=== PATIENT | male | born 1955 | race Caucasian/White ===

== ENCOUNTER 2024-11-18 08:09 | Outpatient (NON) | payer MEDICARE, SELFPAY ==
--- NOTE | 2024-11-18 | S_PTH ---
PATIENT: Arnav May LOC: [facility] U#:[id number] AGE/SX: 68/M ROOM: RE11/18/[address]: Toney Winn MD : 1955 BED: DIS: 11/18/2024 SPEC #: [id number] RECD: 11/19/24 09:27 STATUS: STUART REMargaret #: [id number] MIRELA: 11/18/24 00:[address]: Toney Winn DEPT: [facility] Surgical RECD BY: Kelly Starr ENTERED: 11/19/24 09:28 SP TYPE: Surgical OTHR DR: Rasta SolisMD Tissues: A - Colon Polypectomy Procedures: Hematoxylin and Eosin Stain Gross and Microscopic Level 4
== END 2024-11-18 08:10 | disposition home or self-care (01) ==
LOC: ANHLAB 11-19 08:11
PROVIDERS: PCP Internal Medicine; Visit Provider Internal Medicine Gastroenterology
DX: Z12.11 Encounter for screening for malignant neoplasm of colon (principal); D12.2 Benign neoplasm of ascending colon
CPT/HCPCS: 88305

== ENCOUNTER 2024-11-18 09:21 | Day surgery (SDC) | payer MEDICARE, SELFPAY ==
[2024-06-19 09:14] VITALS: BMI 22.0
[2024-10-31 11:13] VITALS: BMI 22.0
[2024-11-18 10:26] VITALS: BMI 21.9
--- NOTE | 2024-11-18 10:37 | P.PNAN_ITS ---
Anes - Eval Pre Procedure Procedure: Operation Date: 11/18/24 11:00 Proposed Procedures p Screening Colonoscopy - Toney Winn MD Date/Time: 11/18/24 10:37 Surgeon: Tatum Pre Op Diagnosis: Neoplasm Screening Patient Data Age: 68 Gender: M Height: 2.03 m Weight: 90.75 kg Allergies Allergy/AdvReac Type Severity Reaction Status Date / Time No Known Allergies Allergy Verified 11/18/24 10:17 Home Medications ?Medication ?Instructions ?Recorded ?Confirmed ?Type alfuzosin 10 mg tablet,extended 10 mg PO DAILY 10/31/24 10/31/24 History release 24 hr rosuvastatin 40 mg tablet 40 mg PO DAILY 10/31/24 10/31/24 History Patient hx anesthesia problems: none Family hx anesthesia problems: none Results Review: All pre-operative results and documents have been reviewed as part of the pre- operative evaluation. [facility] Social History Social History Smoking status: Former smoker Tobacco type: cigarettes Alcohol intake: current Substance use: never Substance use type: does not use Living arrangements: alone Spiritual care concerns: No Comments ASA 2 Exam Day of Procedure 11/18/24 10:37 Heart: regular rate and rhythm Lungs: clear to auscultation Airway: Mallampati scale class II Neurological: alert and oriented
[2024-11-18] MEDS: LACTATED RINGERS 1,000 ML 150 ML IV CONT (10:38)
[2024-11-18 10:39] VITALS: BP 122/85; PULSE 65; RESP 15; TEMP 36.8; O2SAT 98
--- OUTSIDE RECORDS SUMMARY | 2024-11-18 11:01 | XMS_ITS | Data Portability ---
Author Organization [facility] [employer], Main Office Address [address] [place] [address] Assessment No assessment recorded. Plan of Treatment Reminders Order Date Submit Date Provider Last Modified By Organization Details Last Modified Time Details Appointments None recorded. Lab lipid panel, serum 2023 024 [email or web address] [facility], [address] [place], [address], 5 12:41:47 CMP, serum or plasma 2023 024 [email or web address] [facility], [address] [place], [address], 5 12:41:47 urinalysis, dipstick 2023 024 [email or web address] 4 [facility] [place], [address] [facility] [address], [place], [address], 4 15:51:41 urinalysis complete, reflex culture 2023 024 KRIS [facility], [address] [place], [address], 4 09:38:24 PSA, serum or plasma 2022 023 [email or web address] [facility], [address] [place], [address], 3 09:53:32 CBC w/ auto diff 2022 023 [email or web address] [facility], [address] [place], [address], 3 09:53:32 lipid panel, serum [address] [facility], [address] [place], [address], 3 09:53:32 CMP, serum or plasma [address] [facility], [address] [place], [address], 3 09:53:32 Referral None recorded. Procedures colonoscopy screening (PROC) - Please call patient to schedule. [address] [facility], [address], [address], [place], [address], 5 10:09:21 colonoscopy screening (PROC) 2022 023 [id number] Zainab Arriaza MD, [address] [facility], [place], [address], 3 09:53:21 Surgeries None recorded. Imaging US, bladder 2023 024 [email or web address] 4 [facility] [place], [address] [facility] [address], [place], [address], 4 15:51:41 LDCT, chest, for lung cancer screening [address] ([facility]), [address] [place], [address], 3 09:53:13 Medication Orders sildenafil 100 mg tablet 2023 024 [id number] [place], [address] [place], [address], 4 15:37:56 alfuzosin ER 10 mg tablet,exte nded release 24 hr 2023 024 KRIS [facility] [address], [address], 4 16:34:21 doxycycline hyclate 100 mg capsule 2023 024 [email or web address] [address] [facility] [address], [address], 4 10:04:34 tamsulosin 0.4 mg capsule 2023 024 [email or web address] [facility] [address], [address], 4 15:26:51 varenicline tartrate 0.5 mg (11)-1 mg (42) tablets in a dose pack 2022 023 [email or web address] [facility] [address], [address], 4 15:26:54 Patient TargetsNo targets recorded. Patient Instructions Encounter Date Encounter Id Patient Instructions Last Modified By Organization Details Last Modified Time 02/09/2024 [id number] 1. I will see if his insurance will cover for sildenafil 100 mg tablets 2. Also I will give her a prescription for alfuzosin 10 mg dispensed 90 3. his PSA was normal his prostate exam was normal 4. He will come back in 1 year for a refill [email or web address] Not available 02/09/2024 16:33:48 04/25/2024 [id number] advance care planning: care instructions Not available 04/25/2024 17:47:37 advance directiv es: care instructions Not available 04/25/2024 17:47:37 [place] Advance Directives Not available 04/25/2024 17:47:37 risk assessment* Not available 04/25/2024 17:47:37 Personalized [facility] Plan and Screening Recommendations Advance Directives - Do you have one? No You have indicated that you are capable of preparing your advance care directive Advance Directives - Do we have your advance directive on file in your health record? No, please bring in a copy at your earliest convenience Primary Prevention/Interven tion (prevents or decreases the chance of common diseases from occurring) Smoking Risk: Non Smoker Recently quit-continue with efforts not to smoke. Alcohol Misuse Screening: Negative Weight: Appropriate Physical activity: Appropriate physical activity minimum of 10-20 minutes of activity that causes mild breathlessness/day Nutrition: Average Refer to attached handout Heart-Healthy Diet: After Your Visit Fall Risk (screened today): Low Vaccines Pneumococcal: Recommended today Influenza: Your next one in the fall of 2024 Chronic Disease Risks Stroke: Low Risk I have no recommendations Heart Attack: Low risk I have no recommendations Clogging of the Arteries: Intermediate Risk Active diagnosis, Continue current treatment plan Diabetes: Low Risk I have no recommendations Secondary Prevention/Interven tion (detects treatable diseases before they may cause symptoms, disability, or ) Prostate Cancer Screening: No PSA screening necessary Completed 07/2023 Colon Cancer Screening: Colonoscopy Ordered Date Screening Last Performed: Eye Disease Screening: Recommended today Dementia Risk: Low I have no recommendations Depression Screening: Negative I have no recommendations. [email or web address] Not available 04/25/2024 16:51:59 Reason for Referral None Reported. Results Created Date Observation Date Name Description Value Unit Range Abnormal Flag Note LastModifiedBy Organization Detail LastModifiedTime 07/14/19 24 07/14/2023 CBC/C OMPLE TE BLD COUNT W/DIF F white blood cells 6.2 x10'3 /uL 4.2-10 .8 Not Available [facility] (Lab) [address] [place], [address], 07/14/2023 18:45:01 07/14/19 24 07/14/2023 CBC/C OMPLE TE BLD COUNT W/DIF F red blood cells 4.47 x10'6 /uL 4.10-5 .80 Not Available [facility] (Lab) [address] [place], [address], 07/14/2023 18:45:01 02/09/20 24 07/14/2023 CBC/C OMPLE TE BLD COUNT W/DIF F hemoglobin 13.5 g/dL 13.2-1 7.0 Not Available [facility] (Lab) [address] [place], [address], 07/14/2023 18:45:01 07/14/19 24 07/14/2023 CBC/C OMPLE TE BLD COUNT W/DIF F hematocrit 41.7 % 39.3-5 0.0 Not Available [facility] (Lab) [address] [place], [address], 07/14/2023 18:45:01 07/14/19 24 07/14/2023 CBC/C OMPLE TE BLD COUNT W/DIF F mean red cell volume 93.3 fL 80.0-9 7.0 Not Available [facility] (Lab) [address] [place], [address], 07/14/2023 18:45:01 07/14/19 24 07/14/2023 CBC/C OMPLE TE BLD COUNT W/DIF F mean red cell hemoglobin 30.2 pg 27.0-3 3.0 Not Available [facility] (Lab) [address] [place], [address], 07/14/2023 18:45:01 07/14/19 24 07/14/2023 CBC/C OMPLE TE BLD COUNT W/DIF F mean RBC HGB concentratio n 32.4 g/dL 31.0-3 6.0 Not Available [facility] (Lab) [address] [place], [address], 07/14/2023 18:45:01 07/14/19 24 07/14/2023 CBC/C OMPLE TE BLD COUNT W/DIF F red cell distribution width 14.5 % 11.8-1 5.5 Not Available [facility] (Lab) [address] [place], [address], 07/14/2023 18:45:01 07/14/19 24 07/14/2023 CBC/C OMPLE TE BLD COUNT W/DIF F platelets 319 x10'3 /uL 150-40 0 Not Available [facility] (Lab) [address] [place], [address], 07/14/2023 18:45:01 07/14/19 24 07/14/2023 CBC/C OMPLE TE BLD COUNT W/DIF F mean platelet volume 10.0 fL 9.0-12 .4 Not Available [facility] (Lab) [address] [place], [address], 07/14/2023 18:45:01 07/14/19 24 07/14/2023 CBC/C OMPLE TE BLD COUNT W/DIF F neutrophils 48.8 % 39.0-7 2.0 Not Available [facility] (Lab) [address] [place], [address], 07/14/2023 18:45:01 07/14/19 24 07/14/2023 CBC/C OMPLE TE BLD COUNT W/DIF F lymphocytes 30.5 % 16.0-4 7.0 Not Available [facility] (Lab) [address] [place], [address], 07/14/2023 18:45:01 07/14/19 24 07/14/2023 CBC/C OMPLE TE BLD COUNT W/DIF F monocytes 6.9 % 5.0-12 .0 Not Available [facility] (Lab) [address] [place], [address], 07/14/2023 18:45:01 07/14/19 24 07/14/2023 CBC/C OMPLE TE BLD COUNT W/DIF F eosinophils 11.7 % 1.0-7. 0 high Not Available [facility] (Lab) [address] [place], [address], 07/14/2023 18:45:01 07/14/19 24 07/14/2023 CBC/C OMPLE TE BLD COUNT W/DIF F basophils 1.6 % 0.0-2. 0 Not Available [facility] (Lab) [address] [place], [address], 07/14/2023 18:45:01 07/14/19 24 07/14/2023 CBC/C OMPLE TE BLD COUNT W/DIF F immature granulocytes 0.5 % 0.00-0 .50 Not Available [facility] (Lab) [address] [place], [address], 07/14/2023 18:45:01 07/14/19 24 07/14/2023 CBC/C OMPLE TE BLD COUNT W/DIF F neutrophils, absolute count 3.03 x10'3 /uL 1.5-8. 0 Not Available [facility] (Lab) [address] [place], [address], 07/14/2023 18:45:01 07/14/19 24 07/14/2023 CBC/C OMPLE TE BLD COUNT W/DIF F lymphocytes, absolute count 1.90 x10'3 /uL 1.07-3 .43 Not Available [facility] (Lab) [address] [place], [address], 07/14/2023 18:45:01 07/14/19 24 07/14/2023 CBC/C OMPLE TE BLD COUNT W/DIF F monocytes, absolute count 0.43 x10'3 /uL 0.29-0 .99 Not Available [facility] (Lab) [address] [place], [address], 07/14/2023 18:45:01 07/14/19 24 07/14/2023 CBC/C OMPLE TE BLD COUNT W/DIF F eosinophils, absolute count 0.73 x10'3 /uL 0.02-0 .53 high Not Available [facility] (Lab) [address] [place], [address], 07/14/2023 18:45:01 07/14/19 24 07/14/2023 CBC/C OMPLE TE BLD COUNT W/DIF F basophils, absolute count 0.10 x10'3 /uL 0.01-0 .08 high Not Available [facility] (Lab) [address] [place], [address], 07/14/2023 18:45:01 07/14/19 24 07/14/2023 CBC/C OMPLE TE BLD COUNT W/DIF F immature granulocytes ,absolute 0.03 x10'3 /uL 0.00-0 .05 Not Available [facility] (Lab) [address] [place], [address], 07/14/2023 18:45:01 07/14/19 24 07/14/2023 CBC/C OMPLE TE BLD COUNT W/DIF F nucleated red blood cells 0.0 % -0 Not Available [facility] (Lab) [address] [place], [address], 07/14/2023 18:45:01 07/14/19 24 07/14/2023 CBC/C OMPLE TE BLD COUNT W/DIF F NRBC# 0.00 x10'3 /uL Not Available [facility] (Lab) [address] [place], [address], 07/14/2023 18:45:01 07/14/19 24 07/14/2023 LIPID PANEL cholesterol 271 mg/dL 140-19 9 high NIH KANU NSUS RECOM MENDA TION FOR ZACHARY STERO L: ADULT CHILD LOW RISK: <200 <170 BORDE RLINE : <200- 239 ----- HIGH RISK: >240 >200 Not Available [facility] (Lab) [address] [place], [address], 07/14/2023 18:58:03 07/14/19 24 07/14/2023 LIPID PANEL triglyceride s 112 mg/dL 0-150 NIH KANU NSUS REPOR T RECOM MENDA TION FOR TRIGL YCERI SUN: ADULT CHILD LOW RISK: <150 ----- BODER LINE: 150-1 99 ----- HIGH RISK: >200 ----- Not Available [facility] (Lab) [address] [place], [address], 07/14/2023 18:58:03 07/14/19 24 07/14/2023 LIPID PANEL HDL cholesterol 56 mg/dL 40- Not Available [facility] (Lab) [address] [place], [address], 07/14/2023 18:58:03 07/14/19 24 07/14/2023 LIPID PANEL LDL cholesterol, calculated 193 mg/dL 0-130 high NIH KANU NSUS REPOR T RECOM MENDA TIONS FOR LDL: ADULT CHILD LOW RISK <130 <110 (OPTI MAL LDL) <100 ----- BORDE RLINE : 130-1 59 ----- HIGH RISK: >160 >130 A TRIGL YCERI DE RESUL T >400 INVAL IDATE S THE CALCU LATIO N FOR LDL FRACT IONAT ION - THE LDL RESUL T WILL NOT BE REPOR IVONE. Not Available [facility] (Lab) [address] [place], [address], 07/14/2023 18:58:03 07/14/19 24 07/14/2023 COMPR [place] METAB OLIC PANEL sodium 138 mmol/ L 137-14 5 Not Available [facility] (Lab) [address] [place], [address], 07/14/2023 18:58:17 07/14/19 24 07/14/2023 COMPR [place] METAB OLIC PANEL potassium 4.3 mmol/ L 3.5-5. 1 Not Available [facility] (Lab) [address] [place], [address], 07/14/2023 18:58:17 07/14/19 24 07/14/2023 COMPR [place] METAB OLIC PANEL chloride 104 mmol/ L 98-107 Not Available [facility] (Lab) [address] [place], [address], 07/14/2023 18:58:17 07/14/19 24 07/14/2023 COMPR [place] METAB OLIC PANEL carbon dioxide 27 mmol/ L 22-30 Not Available [facility] (Lab) [address] [place], [address], 07/14/2023 18:58:17 07/14/19 24 07/14/2023 COMPR [place] METAB OLIC PANEL anion gap 11.3 mmol/ L 14-22 low Not Available [facility] (Lab) [address] [place], [address], 07/14/2023 18:58:17 07/14/19 24 07/14/2023 COMPR [place] METAB OLIC PANEL glucose 97 mg/dL 70-99 Not Available [facility] (Lab) [address] [place], [address], 07/14/2023 18:58:17 07/14/19 24 07/14/2023 COMPR [place] METAB OLIC PANEL BUN 10 mg/dL 8-19 Not Available [facility] (Lab) [address] [place], [address], 07/14/2023 18:58:17 07/14/19 24 07/14/2023 COMPR [place] METAB OLIC PANEL creatinine 0.65 mg/dL 0.66-1 .25 low Not Available [facility] (Lab) [address] [place], [address], 07/14/2023 18:58:17 07/14/19 24 07/14/2023 COMPR [place] METAB OLIC PANEL GFR >60 Refer ence Range : [place] ge GFR Healt hy Adult : >60 mL/mi n/1.7 3 m2 Chron ic Kidne y Disea se: 15-60 mL/mi n/1.7 3 m2 Kidne y Failu re: <15/m L/min /1.73 m2 www.n iddk. nih.g ov The MDRD study equat ion has not been valid ated in child edwin <18 years of age; pregn ant women ; the elder ly >85 years of age; or in some racia l or ethni c subgr oups, such as Hispa nics. Outsi de the valid ated marika eters , estim ated GFR is less accur ate, requi ring clini bill judgm ent on a case- by-ca se basis . Clini bill inter preta tion for other races and ages must be made by the clini david. The MDRD study equat ion has not been valid ated for the evalu ation of serum creat inine relat ed to nutri mecca l statu s or medic ation usage . For perso ns <18 years of age, a pedia tric GFR calcu lator is avail able on the [facility] websi te: https ://janay w.kid christian.o rg/pr ofess ional s/kdo qi/gf r_cal culat or Not Available [facility] (Lab) [address] [place], [address], 07/14/2023 18:58:17 07/14/19 24 07/14/2023 COMPR [place] METAB OLIC PANEL alkaline phosphatase 133 U/L 38-126 high Not Available [facility] (Lab) [address] [place], [address], 07/14/2023 18:58:17 07/14/19 24 07/14/2023 COMPR [place] METAB OLIC PANEL alanine aminotransfe rase 120 U/L 0-50 high Not Available [facility] (Lab) [address] [place], [address], 07/14/2023 18:58:17 07/14/19 24 07/14/2023 COMPR [place] METAB OLIC PANEL aspartate aminotransfe rase 72 U/L 15-46 high Not Available [facility] (Lab) [address] [place], [address], 07/14/2023 18:58:17 07/14/19 24 07/14/2023 COMPR [place] METAB OLIC PANEL bilirubin, total 0.40 mg/dL 0.20-1 .30 Not Available [facility] (Lab) [address] [place], [address], 07/14/2023 18:58:17 07/14/19 24 07/14/2023 COMPR [place] METAB OLIC PANEL calcium 9.5 mg/dL 8.4-10 .2 Not Available [facility] (Lab) [address] [place], [address], 07/14/2023 18:58:17 07/14/19 24 07/14/2023 COMPR [place] METAB OLIC PANEL total protein 6.8 g/dL 6.3-8. 2 Not Available [facility] (Lab) [address] [place], [address], 07/14/2023 18:58:17 07/14/19 24 07/14/2023 COMPR [place] METAB OLIC PANEL albumin 3.7 g/dL 3.0-4. 4 Not Available [facility] (Lab) [address] [place], [address], 07/14/2023 18:58:17 07/14/19 24 07/14/2023 COMPR [place] METAB OLIC PANEL globulin 3.1 g/dL 2.6-4. 2 Not Available [facility] (Lab) [address] [place], [address], 07/14/2023 18:58:17 07/14/19 24 07/14/2023 COMPR [place] METAB OLIC PANEL A/G ratio 1.2 ratio 1.0-2. 0 Not Available [facility] (Lab) [address] [place], [address], 07/14/2023 18:58:17 07/31/19 24 07/31/2023 CBC/C OMPLE TE BLD COUNT W/DIF F white blood cells 7.8 x10'3 /uL 4.2-10 .8 Not Available [facility] (Lab) [address] [place], [address], 07/31/2023 15:11:09 07/31/19 24 07/31/2023 CBC/C OMPLE TE BLD COUNT W/DIF F red blood cells 4.59 x10'6 /uL 4.10-5 .80 Not Available [facility] (Lab) [address] [place], [address], 07/31/2023 15:11:09 07/31/19 24 07/31/2023 CBC/C OMPLE TE BLD COUNT W/DIF F hemoglobin 13.9 g/dL 13.2-1 7.0 Not Available [facility] (Lab) [address] [place], [address], 07/31/2023 15:11:09 07/31/19 24 07/31/2023 CBC/C OMPLE TE BLD COUNT W/DIF F hematocrit 41.6 % 39.3-5 0.0 Not Available [facility] (Lab) [address] [place], [address], 07/31/2023 15:11:09 07/31/19 24 07/31/2023 CBC/C OMPLE TE BLD COUNT W/DIF F mean red cell volume 90.6 fL 80.0-9 7.0 Not Available [facility] (Lab) [address] [place], [address], 07/31/2023 15:11:09 07/31/19 24 07/31/2023 CBC/C OMPLE TE BLD COUNT W/DIF F mean red cell hemoglobin 30.3 pg 27.0-3 3.0 Not Available [facility] (Lab) [address] [place], [address], 07/31/2023 15:11:09 07/31/19 24 07/31/2023 CBC/C OMPLE TE BLD COUNT W/DIF F mean RBC HGB concentratio n 33.4 g/dL 31.0-3 6.0 Not Available [facility] (Lab) [address] [place], [address], 07/31/2023 15:11:09 07/31/19 24 07/31/2023 CBC/C OMPLE TE BLD COUNT W/DIF F red cell distribution width 14.2 % 11.8-1 5.5 Not Available [facility] (Lab) [address] [place], [address], 07/31/2023 15:11:09 07/31/19 24 07/31/2023 CBC/C OMPLE TE BLD COUNT W/DIF F platelets 283 x10'3 /uL 150-40 0 Not Available [facility] (Lab) [address] [place], [address], 07/31/2023 15:11:09 07/31/19 24 07/31/2023 CBC/C OMPLE TE BLD COUNT W/DIF F mean platelet volume 9.9 fL 9.0-12 .4 Not Available [facility] (Lab) [address] [place], [address], 07/31/2023 15:11:09 07/31/19 24 07/31/2023 CBC/C OMPLE TE BLD COUNT W/DIF F neutrophils 62.2 % 39.0-7 2.0 Not Available [facility] (Lab) [address] [place], [address], 07/31/2023 15:11:09 07/31/19 24 07/31/2023 CBC/C OMPLE TE BLD COUNT W/DIF F lymphocytes 25.5 % 16.0-4 7.0 Not Available [facility] (Lab) [address] [place], [address], 07/31/2023 15:11:09 07/31/19 24 07/31/2023 CBC/C OMPLE TE BLD COUNT W/DIF F monocytes 5.7 % 5.0-12 .0 Not Available [facility] (Lab) [address] [place], [address], 07/31/2023 15:11:09 07/31/19 24 07/31/2023 CBC/C OMPLE TE BLD COUNT W/DIF F eosinophils 5.1 % 1.0-7. 0 Not Available [facility] (Lab) [address] [place], [address], 07/31/2023 15:11:09 07/31/19 24 07/31/2023 CBC/C OMPLE TE BLD COUNT W/DIF F basophils 1.1 % 0.0-2. 0 Not Available [facility] (Lab) [address] [place], [address], 07/31/2023 15:11:09 07/31/19 24 07/31/2023 CBC/C OMPLE TE BLD COUNT W/DIF F immature granulocytes 0.4 % 0.00-0 .50 Not Available [facility] (Lab) [address] [place], [address], 07/31/2023 15:11:09 07/31/19 24 07/31/2023 CBC/C OMPLE TE BLD COUNT W/DIF F neutrophils, absolute count 4.86 x10'3 /uL 1.5-8. 0 Not Available [facility] (Lab) [address] [place], [address], 07/31/2023 15:11:09 07/31/19 24 07/31/2023 CBC/C OMPLE TE BLD COUNT W/DIF F lymphocytes, absolute count 2.00 x10'3 /uL 1.07-3 .43 Not Available [facility] (Lab) [address] [place], [address], 07/31/2023 15:11:09 07/31/19 24 07/31/2023 CBC/C OMPLE TE BLD COUNT W/DIF F monocytes, absolute count 0.45 x10'3 /uL 0.29-0 .99 Not Available [facility] (Lab) [address] [place], [address], 07/31/2023 15:11:09 07/31/19 24 07/31/2023 CBC/C OMPLE TE BLD COUNT W/DIF F eosinophils, absolute count 0.40 x10'3 /uL 0.02-0 .53 Not Available [facility] (Lab) [address] [place], [address], 07/31/2023 15:11:09 07/31/19 24 07/31/2023 CBC/C OMPLE TE BLD COUNT W/DIF F basophils, absolute count 0.09 x10'3 /uL 0.01-0 .08 high Not Available [facility] (Lab) [address] [place], [address], 07/31/2023 15:11:09 07/31/19 24 07/31/2023 CBC/C OMPLE TE BLD COUNT W/DIF F immature granulocytes ,absolute 0.03 x10'3 /uL 0.00-0 .05 Not Available [facility] (Lab) [address] [place], [address], 07/31/2023 15:11:09 07/31/19 24 07/31/2023 CBC/C OMPLE TE BLD COUNT W/DIF F nucleated red blood cells 0.0 % -0 Not Available [facility] (Lab) [address] [place], [address], 07/31/2023 15:11:09 07/31/19 24 07/31/2023 CBC/C OMPLE TE BLD COUNT W/DIF F NRBC# 0.00 x10'3 /uL Not Available [facility] (Lab) [address] [place], [address], 07/31/2023 15:11:09 07/31/19 24 07/31/2023 LIPID PANEL cholesterol 236 mg/dL 140-19 9 high NIH KANU NSUS RECOM MENDA TION FOR ZACHARY STERO L: ADULT CHILD LOW RISK: <200 <170 BORDE RLINE : <200- 239 ----- HIGH RISK: >240 >200 Not Available [facility] (Lab) [address] [place], [address], 07/31/2023 17:07:42 07/31/19 24 07/31/2023 LIPID PANEL triglyceride s 165 mg/dL 0-150 high NIH KANU NSUS REPOR T RECOM MENDA TION FOR TRIGL YCERI SUN: ADULT CHILD LOW RISK: <150 ----- BODER LINE: 150-1 99 ----- HIGH RISK: >200 ----- Not Available [facility] (Lab) [address] [place], [address], 07/31/2023 17:07:42 07/31/19 24 07/31/2023 LIPID PANEL HDL cholesterol 51 mg/dL 40- Not Available [facility] (Lab) [address] [place], [address], 07/31/2023 17:07:42 07/31/19 24 07/31/2023 LIPID PANEL LDL cholesterol, calculated 152 mg/dL 0-130 high NIH KANU NSUS REPOR T RECOM MENDA TIONS FOR LDL: ADULT CHILD LOW RISK <130 <110 (OPTI MAL LDL) <100 ----- BORDE RLINE : 130-1 59 ----- HIGH RISK: >160 >130 A TRIGL YCERI DE RESUL T >400 INVAL IDATE S THE CALCU LATIO N FOR LDL FRACT IONAT ION - THE LDL RESUL T WILL NOT BE REPOR IVONE. Not Available [facility] (Lab) [address] [place], [address], 07/31/2023 17:07:42 07/31/19 24 07/31/2023 COMPR E[place] METAB OLIC PANEL sodium 139 mmol/ L 137-14 5 Not Available [facility] (Lab) [address] [place], [address], 07/31/2023 17:13:22 07/31/19 24 07/31/2023 COMPR [place] METAB OLIC PANEL potassium 4.4 mmol/ L 3.5-5. 1 Not Available [facility] (Lab) [address] [place], [address], 07/31/2023 17:13:22 07/31/19 24 07/31/2023 COMPR [place] METAB OLIC PANEL chloride 106 mmol/ L 98-107 Not Available [facility] (Lab) [address] [place], [address], 07/31/2023 17:13:22 07/31/19 24 07/31/2023 COMPR [place] METAB OLIC PANEL carbon dioxide 24 mmol/ L 22-30 Not Available [facility] (Lab) [address] [place], [address], 07/31/2023 17:13:22 07/31/19 24 07/31/2023 COMPR [place] METAB OLIC PANEL anion gap 13.4 mmol/ L 14-22 low Not Available [facility] (Lab) [address] [place], [address], 07/31/2023 17:13:22 07/31/19 24 07/31/2023 COMPR [place] METAB OLIC PANEL glucose 94 mg/dL 70-99 Not Available [facility] (Lab) [address] [place], [address], 07/31/2023 17:13:22 07/31/19 24 07/31/2023 COMPR [place] METAB OLIC PANEL BUN 15 mg/dL 8-19 Not Available [facility] (Lab) [address] [place], [address], 07/31/2023 17:13:22 07/31/19 24 07/31/2023 COMPR [place] METAB OLIC PANEL creatinine 0.81 mg/dL 0.66-1 .25 Not Available [facility] (Lab) [address] [place], [address], 07/31/2023 17:13:22 07/31/19 24 07/31/2023 COMPR [place] METAB OLIC PANEL GFR >60 Refer ence Range : [place] ge GFR Healt hy Adult : >60 mL/mi n/1.7 3 m2 Chron ic Kidne y Disea se: 15-60 mL/mi n/1.7 3 m2 Kidne y Failu re: <15/m L/min /1.73 m2 [email or web address] The MDRD study equat ion has not been valid ated in child edwin <18 years of age; pregn ant women ; the elder ly >85 years of age; or in some racia l or ethni c subgr oups, such as [facility] nics. Outsi de the valid ated marika eters , estim ated GFR is less accur ate, requi ring clini bill judgm ent on a case- by-ca se basis . Clini bill inter preta tion for other races and ages must be made by the clini david. The MDRD study equat ion has not been valid ated for the evalu ation of serum creat inine relat ed to nutri mecca l statu s or medic ation usage . For perso ns <18 years of age, a pedia tric GFR calcu lator is avail able on the [facility] websi te: [email or web address] [email or web address] [email or web address] culat or Not Available [facility] (Lab) [address] [place], [address], 07/31/2023 17:13:22 07/31/19 24 07/31/2023 COMPR EHENS ROCK METAB OLIC PANEL alkaline phosphatase 90 U/L 38-126 Not Available [facility] (Lab) [address] [place], [address], 07/31/2023 17:13:22 07/31/19 24 07/31/2023 COMPR EHENS [place] METAB OLIC PANEL alanine aminotransfe rase 29 U/L 0-50 Not Available [facility] (Lab) [address] [place], [address], 07/31/2023 17:13:22 07/31/19 24 07/31/2023 COMPR EHENS [place] METAB OLIC PANEL aspartate aminotransfe rase 24 U/L 15-46 Not Available [facility] (Lab) [address] [place], [address], 07/31/2023 17:13:22 07/31/19 24 07/31/2023 COMPR EHENS R[place] METAB OLIC PANEL bilirubin, total 0.50 mg/dL 0.20-1 .30 Not Available [facility] (Lab) [address] [place], [address], 07/31/2023 17:13:22 07/31/19 24 07/31/2023 COMPR EHENS [place] METAB OLIC PANEL calcium 10.0 mg/dL 8.4-10 .2 Not Available [facility] (Lab) [address] [place], [address], 07/31/2023 17:13:22 07/31/19 24 07/31/2023 COMPR EHENS [place] METAB OLIC PANEL total protein 7.2 g/dL 6.3-8. 2 Not Available [facility] (Lab) [address] [place], [address], 07/31/2023 17:13:22 07/31/19 24 07/31/2023 COMPR EHENS [place] METAB OLIC PANEL albumin 4.2 g/dL 3.0-4. 4 Not Available [facility] (Lab) [address] [place], [address], 07/31/2023 17:13:22 07/31/19 24 07/31/2023 COMPR EHENS [place] METAB OLIC PANEL globulin 3.0 g/dL 2.6-4. 2 Not Available [facility] (Lab) [address] [place], [address], 07/31/2023 17:13:22 07/31/19 24 07/31/2023 COMPR EHENS [place] METAB OLIC PANEL A/G ratio 1.4 ratio 1.0-2. 0 Not Available [facility] (Lab) [address] [place], [address], 07/31/2023 17:13:22 07/31/19 24 07/31/2023 PSA SCREE N PSA medicare screen 1.08 NG/mL 0.00-4 .00 Not Available [facility] (Lab) [address] [place], [address], 07/31/2023 17:39:40 10/24/19 24 10/24/2023 URINA LYSIS COMPL ETE/I RIS W/RFX color YELLOW Not Available [facility] (Lab) [address] [place], [address], 10/24/2023 19:41:16 10/24/19 24 10/24/2023 URINA LYSIS COMPL ETE/I RIS W/RFX appear CLEAR Not Available [facility] (Lab) [address] [place], [address], 10/24/2023 19:41:16 10/24/19 24 10/24/2023 URINA LYSIS COMPL ETE/I RIS W/RFX specific gravity 1.020 1.001- 1.030 Not Available [facility] (Lab) [address] [place], [address], 10/24/2023 19:41:16 10/24/19 24 10/24/2023 URINA LYSIS COMPL ETE/I RIS W/RFX pH 6.5 pH_un its 5.0-9. 0 Not Available [facility] (Lab) [address] [place], [address], 10/24/2023 19:41:16 10/24/19 24 10/24/2023 URINA LYSIS COMPL ETE/I RIS W/RFX leukocytes NEGATI VE lizette/u L negati ve- Not Available [facility] (Lab) [address] [place], [address], 10/24/2023 19:41:16 10/24/19 24 10/24/2023 URINA LYSIS COMPL ETE/I RIS W/RFX nitrite NEGATI VE negati ve- Not Available [facility] (Lab) [address] [place], [address], 10/24/2023 19:41:16 10/24/19 24 10/24/2023 URINA LYSIS COMPL ETE/I RIS W/RFX protein NEGATI VE mg/dL negati ve- Not Available [facility] (Lab) [address] [place], [address], 10/24/2023 19:41:16 10/24/19 24 10/24/2023 URINA LYSIS COMPL ETE/I RIS W/RFX glucose NORMAL mg/dL normal - Not Available [facility] (Lab) [address] [place], [address], 10/24/2023 19:41:16 10/24/19 24 10/24/2023 URINA LYSIS COMPL ETE/I RIS W/RFX ketones NEGATI VE mg/dL negati ve- Not Available [facility] (Lab) [address] [place], [address], 10/24/2023 19:41:16 10/24/19 24 10/24/2023 URINA LYSIS COMPL ETE/I RIS W/RFX urobilinogen NORMAL mg/dL normal - Not Available [facility] (Lab) [address] [place], [address], 10/24/2023 19:41:16 10/24/19 24 10/24/2023 URINA LYSIS COMPL ETE/I RIS W/RFX bilirubin NEGATI VE mg/dL negati ve- Not Available [facility] (Lab) [address] [place], [address], 10/24/2023 19:41:16 10/24/19 24 10/24/2023 URINA LYSIS COMPL ETE/I RIS W/RFX blood NEGATI VE mg/dL negati ve- Not Available [facility] (Lab) [address] [place], [address], 10/24/2023 19:41:16 10/24/19 24 10/24/2023 URINA LYSIS COMPL ETE/I RIS W/RFX white blood cells 0-8 /i??h pfi?? 0-8 Not Available [facility] (Lab) [address] [place], [address], 10/24/2023 19:41:16 10/24/19 24 10/24/2023 URINA LYSIS COMPL ETE/I RIS W/RFX red blood cells NONE /i??h pfi?? 0-4 Not Available [facility] (Lab) [address] [place], [address], 10/24/2023 19:41:16 10/24/19 24 10/24/2023 URINA LYSIS COMPL ETE/I RIS W/RFX bacteria NONE Not Available [facility] (Lab) [address] [place], [address], 10/24/2023 19:41:16 10/24/19 24 10/24/2023 URINA LYSIS COMPL ETE/I RIS W/RFX mucous FEW /i??l pfi?? abnormal Not Available [facility] (Lab) [address] [place], [address], 10/24/2023 19:41:16 10/24/19 24 10/24/2023 URINA LYSIS COMPL ETE/I RIS W/RFX squamous epithelial NONE /i??l pfi?? abnormal Not Available [facility] (Lab) [address] [place], [address], 10/24/2023 19:41:16 02/09/20 24 02/09/2024 urina lysis , dipst ick Leukocytes (reference range: negative lizette/ l) Negati ve Not Available [facility] [place] [address], [place], [address], 02/09/2024 15:14:52 02/09/20 24 02/09/2024 urina lysis , dipst ick Nitrite (reference rage: negative mg/dl) negati ve Not Available [facility] [place] [address], [place], [address], 02/09/2024 15:14:52 02/09/20 24 02/09/2024 urina lysis , dipst ick Urobilinogen (reference range: 0.2-1 mg/dl) 0.2 Not Available [facility] [place] [address], [place], [address], 02/09/2024 15:14:52 02/09/20 24 02/09/2024 urina lysis , dipst ick Protein (reference range: negative mg/dl) Negati ve Not Available [facility] [place] [address], [place], [address], 02/09/2024 15:14:52 02/09/20 24 02/09/2024 urina lysis , dipst ick pH (reference range: 5-7) 7.0 Not Available [facility] [address], [place], [address], 02/09/2024 15:14:52 02/09/2002/09/2024 urina lysis , dipst ick Blood (reference range: negative Guilherme/ l) Negati ve Not Available [facility] [address], [place], [address], 02/09/2024 15:14:52 02/09/2002/09/2024 urina lysis , dipst ick Specific [place] (reference range: 1.005-1.030) 1.025 Not Available s _g [address], [place], [address], 02/09/2024 15:14:52 02/09/20 24 02/09/2024 urina lysis , dipst ick Ketone (reference range: negative mg/dl) Negati ve Not Available [facility] [address], [place], [address], 02/09/2024 15:14:52 02/09/2002/09/2024 urina lysis , dipst ick Bilirubin (reference range: negative mg/dl) Negati ve Not Available [facility] [address], [place], [address], 02/09/2024 15:14:52 02/09/20 24 02/09/2024 urina lysis , dipst ick Glucose (reference range: negative mg/dl) Negati ve Not Available [facility] [place] [address], [place], [address], 02/09/2024 15:14:52 02/09/20 24 02/09/2024 , bla er No observ ation record ed. [email or web address] [facility] [place] [address], [place], [address], 02/09/2024 17:04:14 Result Notes None recorded. Problems Name Problem SNOMED Code Status Onset Date Resolution Date Notes Provider Name and Address Organization Details Recorded Time Hypercholeste rolemia 89451853 Active Not Available [facility] 3 17:43:55 Increased frequency of urination 881931248 Active Not Available [facility] 3 17:43:55 Tinea corporis 46131695 Active Not Available [facility] 3 17:43:55 Smoker 77082669 Active 2022 Rasta Solis MD [address] [place] [address], [place], [address] , [facility] [employer] [facility] 3 14:36:09 Hyperlipidemi a 08258117 Active 2023 Rasta Solis MD [address], [place] [address], [place], [address] , [facility] [employer] [facility] [employer] [facility] 4 08:37:23 Liver function tests outside reference range 861633637 Active 2023 Rasta Solis MD [address], [facility] [address], [place], [address] , [facility] [employer] [facility] [employer] [facility] 4 08:37:32 Liver enzymes level above reference range 801455536 Active 2023 Rosalba Melvin LPN null, [facility] [employer] [facility] 4 09:48:26 Urinary symptoms 624042450 Active 2023 Bette Angulo MA null, [facility] [email or web address] [facility] 4 16:42:22 Infection of tick bite 729800973 Active 2023 Rasta Solis MD [address] [facility], [place] [address], [place], [address] , [facility] [email or web address] [facility] 4 10:07:45 Prostatism 02553728 Active 2023 Rasta Solis MD [address] [facility], [facility] [address], [place], [address] , [facility] [email or web address] [facility] 4 10:08:22 Benign prostatic hyperplasia 700674238 Active 2023 Bette Angulo MA null, [facility] [email or web address] [facility] 4 15:47:18 Benign prostatic hyperplasia with outflow obstruction 224816118 Active 2023 Emperatriz Uriasison null, [facility] [email or web address] [facility] 4 15:14:29 Erectile dysfunction 150327075 Active 2023 Jasper Anaya MD [address] [facility], [place] [address], [place], [address] , [facility] [email or web address] [facility] 4 16:32:12 Notes:Some problems listed i n Documents: #[id number], #[id number], #[id number] could not be added to this patient's chart. Please review these documents and add these problems to the patient's chart manually as needed. Problem Notes None recorded. Procedures Surgical History Date Name Laterality Status Provider Name and Address Organization Details Recorded Time 4 Advanced Care Planning completed Kaelyn Brink RN [facility] [email or web address] [facility] 04/25/2024 16:44:44 Imaging Results None recorded. Procedure Notes None recorded. Medical Equipment None Reported. Allergies No known drug allergies Medications Name Sig Start Date Stop Date Status Note LastModified by Organization Details LastModified Time doxycycline hyclate 100 mg capsule Take 1 capsule twice a day by oral route. 11/02 completed Not Available Not Available Not Available atorvastati n 20 mg tablet TAKE 1 TABLET BY MOUTH EVERY DAY 04/14 completed Not Available Not Available Not Available acetazolami de ER 500 mg capsule,ext ended release 07/25 completed Not Available Not Available Not Available ofloxacin 0.3 % eye drops 04/14 completed Not Available Not Available Not Available benzonatate 200 mg capsule TAKE 1 CAPSULE BY MOUTH EVERY 4 TO 6 HOURS NEEDED 04/25 completed Not Available Not Available Not Available hydrocodone 5 mg-acetamin ophen 325 mg tablet 04/14 completed Not Available Not Available Not Available prednisone 20 mg tablet 07/25 completed Not Available Not Available Not Available sildenafil 100 mg tablet TAKE 1 TABLET BY MOUTH EVERY DAY NEEDED 04/25 completed Not Available Not Available Not Available terbinafine HCl 250 mg tablet Take 1 tablet every day by oral route for 90 days. active Not Available Not Available No t Available prednisolon e acetate 1 % eye drops,suspe nsion 04/14 completed Not Available Not Available Not Available tamsulosin 0.4 mg capsule TAKE 1 CAPSULE BY MOUTH EVERY DAY 04/25 completed CHRIS ok to rf Not Available Not Available Not Available hydrocodone 7.5 mg-acetamin ophen 325 mg tablet 04/14 completed Not Available Not Available Not Available cephalexin 500 mg capsule 04/14 completed Not Available Not Available Not Available methylpredn isolone 4 mg tablets in a dose pack TAKE 6 TABLETS ON DAY 1 DIRECTED ON PACKAGE AND DECREASE BY 1 TAB EACH DAY FOR A TOTAL OF 6 DAYS 04/25 completed Not Available Not Available Not Available albuterol sulfate HFA 90 mcg/actuati on aerosol inhaler TAKE 2 PUFFS BY MOUTH EVERY 4 TO 6 HOURS NEEDED 04/25 completed Not Available Not Available Not Available naproxen 500 mg tablet TAKE 1 TABLET BY MOUTH EVERY 12 HOURS NEEDED FOR PAIN, TAKE WITH FOOD 04/25 completed Not Available Not Available Not Available rosuvastati n 20 mg tablet Take 1 tablet every day by oral route. 08/06 completed Not Available Not Available Not Available rosuvastati n 40 mg tablet Take 1 tablet every day by oral route for 90 days. 2024 active Not Available Not Available Not Avai lable alfuzosin ER 10 mg tablet,exte nded release 24 hr TAKE 1 TABLET BY MOUTH EVERY DAY active Not Available Not Available No t Available chlorhexidi ne gluconate 0.12 % mouthwash 04/14 completed Not Available Not Available Not Available varenicline tartrate 1 mg tablet TAKE 1 TABLET BY MOUTH TWICE A DAY 04/25 completed Not Available Not Available Not Available varenicline tartrate 0.5 mg (11)-1 mg (42) tablets in a dose pack TAKE DIRECTED ON THE PACKAGE 04/25 completed Not Available Not Available Not Available Suprep Bowel Prep Kit 17.5 gram-3.13 gram-1.6 gram oral solution 05/17 completed Not Available Not Available Not Available Vitals Date Recorded Body height Body mass index (BMI) Body weight Body temperature Heart rate Oxygen saturation Oxygen saturation in Arterial blood by Pulse oximetry Systolic blood pressure Diastolic blood pressure Provider Name and Address Organization Details Last Updated DateTime 4 203.2 cm 20.5 kg/m2 75250.7 7 g 97 [degF] 73 /min 97 % 97 % 130 mm[Hg] 84 mm[Hg] LUL Golden [facility] 4 09:49:31 Date Recorded Body height Body mass index (BMI) Body weight Body temperature Heart rate Oxygen saturation Oxygen saturation in Arterial blood by Pulse oximetry Provider Name and Address Organization Details Last Updated DateTime 4 203.2 cm 21.4 kg/m2 78328.5 1 g 97.3 [degF] 87 /min 96 % 96 % Emperatriz Abebe [facility] 4 15:18:42 Date Recorded Body weight Body mass index (BMI) Body height Heart rate Heart rate Oxygen saturation Oxygen saturation in Arterial blood by Pulse oximetry Systolic blood pressure Diastolic blood pressure Provider Name and Address Organization Details Last Updated DateTime 3 64932.5 8 g 18.8 kg/m2 203.2 cm 97.3 /min 79 /min 87 % 87 % 100 mm[Hg] 60 mm[Hg] Emperatriz Abebe [facility] 3 14:21:42 Date Recorded Body height Body mass index (BMI) Body weight Heart rate Oxygen saturation Oxygen saturation in Arterial blood by Pulse oximetry Body temperature Systolic blood pressure Diastolic blood pressure Provider Name and Address Organization Details Last Updated DateTime 203.2 cm 22 kg/m2 42018.4 7 g 80 /min 97 % 97 % 97.4 [degF] 112 mm[Hg] 58 mm[Hg] Rabia dorado, [facility] [employer] [facility] [employer] 15:24:28 Social History Question Answer Notes LastModified by Organization Details LastModified Time Tobacco Smoking Status Former Smoker Kaelyn Brink RN [facility] [place] [facility] [employer] 04/25/2024 15:56:40 Do You Have An Advance Directive? No Paperwork Provided 04/25/2024 [email or web address] Information not available 04/25/2024 Are You Blind Or Do You Have Difficulty Seeing? No [email or web address] Information not available 04/25/2024 Is Blood Transfusion Acceptable In An Emergency? Yes [email or web address] Information not available 04/25/2024 What Is Your Level Of Caffeine Consumption? Heavy [email or web address] Information not available 04/25/2024 Are You Deaf Or Do You Have Serious Difficulty Hearing? Yes Tinnitus Bilateral [email or web address] Information not available 04/25/2024 What Type Of Diet Are You Following? REGULAR [email or web address] Information not available 04/25/2024 Which Illicit Or Recreational Drugs Have You Used? Marijuanna [email or web address] Information not available 04/25/2024 What Is The Highest Grade Or Level Of School You Have Completed Or The Highest Degree You Have Received? [id number] [email or web address] Information not available 04/25/2024 How Many Days Of Moderate To Strenuous Exercise, Like A Brisk Walk, Did You Do In The Last 7 Days? 7 [email or web address] Information not available 04/25/2024 On Those Days That You Engage In Moderate To Strenuous Exercise, How Many Minutes, On Average, Do You Exercise? 45 [email or web address] Information not available 04/25/2024 Have There Been Any Changes To Your Family Or Social Situation? Yes Daughter And Boyfriend Living In Basement 04/2024 [email or web address] Information not available 04/25/2024 What Is The Fluoride Status Of Your Home? Fluoridated [email or web address] Information not available 04/25/2024 When Did You Quit Smoking? 1-5yearssincelastc igarette Approx Apr 2023 [email or web address] Information not available 04/25/2024 Are There Any Guns Present In Your Home? No [email or web address] Information not available 04/25/2024 Do You Use Insect Repellent Routinely? No [email or web address] Information not available 04/25/2024 Where Do You Live? SingleLevelHouse [email or web address] Information not available 04/25/2024 Do You Have A Medical Power Of Certified Tower Climber? No [email or web address] Information not available 04/25/2024 What Was The Date Of Your Most Recent Tobacco Screening? 04/25/2024 [email or web address] Information not available 04/25/2024 How Many Children Do You Have? 5 [email or web address] Information not available 04/25/2024 Have You Ever Been Counseled For Unhealthy Alcohol Use? No [email or web address] Information not available 04/25/2024 Do You Have Any Pets? Yes [email or web address] Information not available 04/25/2024 What Is Your Relationship Status? [email or web address] Information not available 04/25/2024 Do You Use Your Seat Belt Or Car Seat Routinely? Yes [email or web address] Information not available 04/25/2024 Are You Sexually Active? Yes [email or web address] Information not available 04/25/2024 Do You Have Smoke And Carbon Monoxide Detectors In Your Home? Yes [email or web address] Information not available 04/25/2024 Are You Passively Exposed To Smoke? Yes [email or web address] Information not available 04/25/2024 Are There Any Smokers In Your House? Yes [email or web address] Information not available 04/25/2024 How Much Tobacco Do You Smoke? 1 PPD [email or web address] Information not available 04/25/2024 What Types Of Sporting Activities Do You Participate In? 0 [email or web address] Information not available 04/25/2024 Do You Use Sunscreen Routinely? No [email or web address] Information not available 04/25/2024 Has Tobacco Cessation Counseling Been Provided? Yes [email or web address] Information not available 04/25/2024 On What Date Was Tobacco Cessation Counseling Provided? 04/25/2024 [email or web address] Information not available 04/25/2024 Have You Recently Traveled Abroad? No [email or web address] Information not available 04/25/2024 Have You Used IV Drugs? No [email or web address] Information not available 04/25/2024 Do You Have Difficulty Walking Or Climbing Stairs? Yes Left Knee Causes Problem With Stairs [email or web address] Information not available 04/25/2024 Do You Have Any Dietary Restrictions? No [email or web address] Information not available 04/25/2024 How Many Days In The Past Year Have You Consumed 5 Or More Drinks? 4 [email or web address] Information not available 04/25/2024 Sex: Unknown Functional Status Question Answer Note LastModified by Organizat ion Details LastModified Time Do you use any illicit or recreational drugs? Yes [email or web address] Information not available 04/25/2024 Do you or have you ever used any other forms of tobacco or nicotine? No [email or web address] Information not available 04/25/2024 What is your level of alcohol consumption? Occasional [email or web address] Information not available 04/25/2024 Are you currently employed? No [email or web address] Information not available 04/25/2024 Do you have transportation difficulties? No [email or web address] Information not available 04/25/2024 Are you able to walk? YESWOREST [email or web address] Information not available 04/25/2024 Do you have difficulty doing errands alone? No [email or web address] Information not available 04/25/2024 Are you able to care for yourself? 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 No [email or web address] Information not available 04/25/2024 What is your exercise level? Occasional [email or web address] Information not available 04/25/2024 Mental Status Question Answer Note LastModified by Organizat ion Details LastModified Time Do you feel stressed (tense, restless, nervous, or anxious, or unable to sleep at night)? [id number] [email or web address] Information not available 04/25/2024 Do you have difficulty concentrating, remembering or making decisions? No [email or web address] Information no t available 04/25/2024 Family History Nothing Reported. Medical History No medical history recorded. Immunizations Vaccine Type Date Status Note Provider Nam e and Address Organization Details Recorded Time Pneumococcal conjugate PCV 13 3 completed Rasta Solis MD [address] [facility], [facility] [address], [place], [address], [facility] [employer] [facility] 04/24/2023 16:35:42 Influenza, high-dose, trivalent, PF 4 completed Rasta Solis MD [address] [facility], [place], [address], [employer] 04/25/2024 17:37:16 pneumococcal polysaccharide PPV23 4 completed Rasta Solis MD [address], [place], [address], [facility] [employer] [facility] 04/25/2024 17:37:16 Past Encounters Encounter ID Performer Location Encounter Start Date Encounter Closed Date Diagnosis/Indication Diagnosis SNOMED-CT Code Diagnosis ICD10 Code Diagnosis Note [id number] Rasta Solis MD [facility] Internal Med [facility] [address] [place] [address] 04/24/2023 14:06:32 04/24/2023 14:58:32 Adult health examination 624494420 Z00.00 colonoscop y- never, will orderPSA orderedPre vnar today Smoker 36219483 F17.200 willing to quit Screening for malignant neoplasm of prostate 502305569 Z12.5 Screening for malignant neoplasm of colon 944510004 Z12.11 [id number] Rasta Solis MD [facility] Internal Med [facility] [address] [place] [address] 10/24/2023 09:43:57 10/24/2023 10:12:57 Infection of tick bite 661286805 L08.9 Prostatism 18380938 N40. 0 call me if not better in a month, stop the meds in a month [id number] Jasper Anaya MD [facility] [place] [address] [facility] [address] [place] [address] 02/09/2024 14:52:48 02/09/2024 15:44:52 Benign prostatic hyperplasia with outflow obstruction 206748524 N40.1 Erectile dysfunction 860 163489 F52.21 [id number] Rasta Solis MD [facility] [address] [place] [address] 04/25/2024 15:07:59 04/25/2024 16:09:32 Hyperlipidemia 80216760 E78.5 meds were adjusted, check labs Benign pro static hyperplasia 192495072 N40.0 better with meds Adult heal th examination 392324020 Z00.00 colonoscop y- never, will reorderPSA - 07/31/2023 Prevnar 13- 04/24/23Pn eumovax 23 todayFLU- 04/25/24CO VID- Has had 3 vaccines Screening for malignant neoplasm of colon 169447002 Z12.11 Depression screening 171 199599 Z13.31 Body mass index 20-24 - normal 348226246 Z68.22 Administra tion of influenza vaccine 53207520 Z23 Administra tion of pneumococcal vaccine 90539460 Z23 Health Concerns Section Related Observation LastModified by Organization Detai ls LastModified Time None Recorded Concern Status LastModified by Organization Details LastModified Time None Recorded Advance Directives Directive N: paperwork provided 2023 Payers Insurance Date Sequence Insurance Name Policy Number Policy Orozco Covered Member ID Orozco Member ID Guarantor Name 05/24/2024 1 [facility] [id number] Arnav May [id number] Arnav May Notes Date Note Type Note Provider Name and Address Organization Details Recorded Time 04/24/2023 text/html Pt is here today to establish care and discuss smoking cessation.He is in good health, not on meds.Smoker for 40 yrs, over one pack per day Rasta Solis MD [address] [place] [address], [facility] [address], [place], [address], [place] [facility] [employer] 04/24/2023 16:36:03 10/24/2023 text/html He is here today for a tick bite. He noticed it a week ago Monday after returning back from [facility]. He noticed a tick on the top of his right foot and removed the tick the way he was taught but last night he noticed his foot was swollen compared to the left foot.no fever, no bodyachesDenies any pain, does feel a little numb when he tries to bend his toes states that he is having issues urinating as in not being completely relived. states that he is urinating more than normal nad after he is done he leaks and has to go more. no pain, no burning, just a lot of pressure, and he stream is not normal. symptoms started 1 month ago and getting slowly worse. Rasta Slois MD [address] [address], [place], [address], [employer] 10/24/2023 10:10:11 02/09/2024 text/html this patient has a history of some BPH symptoms and in the past he was started on tamsulosin he had some sexual side effects so he stopped it. He admits to his stream being slow he has some starting and stopping he gets up a few times a night He says it caused him to have some erectile dysfunction and some ejaculatory difficulty He had a bladder scan with a PVR of 0 today. His urinalysis completely normal. Jasper nAaya MD [address], [place], [address], [employer] 02/09/2024 16:34:22 04/25/2024 text/html Pt is here today for his annual check up Hyperlipidemia- On MedsMeds- Rosuvastatin 40mg daily BPH- Has seen urology in the past, on medsMeds- Alfuzosin ER 10mg daily Rasta Solis MD [address], [place], [address], [employer] 04/25/2024 17:37:23
--- NOTE | 2024-11-18 11:09 | PM.IMHP ---
H&P: HPI History of Present Illness Date/Time: 11/18/24 11:09 Chief Complaint: Screening colonoscopy Narrative: This is the patient's 2nd colonoscopy. There are no GI symptoms and there is no family history of colorectal cancer. Review of Systems Review of Systems: All systems reviewed & are unremarkable except as noted in HPI and below [facility] Social History Social History Smoking status: Former smoker Tobacco type: cigarettes Alcohol intake: current Substance use: never Substance use type: does not use Living arrangements: alone Spiritual care concerns: No Meds Home Medications and Allergies Home Medications ?Medication ?Instructions ?Recorded ?Confirmed ?Type alfuzosin 10 mg tablet,extended 10 mg PO DAILY 10/31/24 10/31/24 History release 24 hr rosuvastatin 40 mg tablet 40 mg PO DAILY 10/31/24 10/31/24 History Allergies Allergy/AdvReac Type Severity Reaction Status Date / Time No Known Allergies Allergy Verified 11/18/24 10:17 Vital Signs Vital Signs - 24 hr 11/18/24 10:39 Temperature 98.2 F Pulse Rate 65 Respiratory Rate 15 Blood Pressure 122/85 Pulse Oximetry 98 Oxygen Delivery Room Air Exam Const: General: cooperative and healthy appearing Resp: Effort & Inspection: normal respiratory effort and able to speak in complete sentences Auscultation: clear to auscultation bilaterally Cardio: Rate: regular rate Rhythm: regular rhythm GI: Inspection: normal to inspection GI Palp: No No hepatosplenomegaly present Auscultation: normal bowel sounds Rectal Exam: deferred Skin: General skin exam: normal color Psych: Appearance: grossly normal Mental Status: mental status grossly normal Assessment and Plan Assessment and plan (1) Encounter for screening colonoscopy: Code(s): Z12.11 - Encounter for screening for malignant neoplasm of colon Status: Acute Assessment and Plan: The patient is deemed a good candidate for the procedure. Consent signed. Will proceed.
--- NOTE | 2024-11-18 11:52 | SUR.OPER ---
resulotion clip applied to polyp site in ascending colon ref: [id number]
[2024-11-18 12:02] VITALS: BP 123/81; PULSE 64; RESP 17; O2SAT 100
--- NOTE | 2024-11-18 12:06 | WPDANESPN ---
Anes - Prog Note Post-Op Date/Time: 11/18/24 12:06 Vital Signs: Last Vital Signs Temp 98.2 F 11/18/24 10:39 Pulse 65 11/18/24 10:39 Resp 15 11/18/24 10:39 BP 122/85 11/18/24 10:39 Pulse Ox 98 11/18/24 10:39 O2 Del Method Room Air 11/18/24 10:39 Pain Score (VAS): no I/O: Intake & Output 11/17/24 11/18/24 11/18/24 23:59 07:59 15:59 Intake Total 400 Balance 400 Patient Feedback: Patient satisfied with anesthetic care.
--- NOTE | 2024-11-18 12:08 | PM.IMHP ---
H&P: HPI History of Present Illness Date/Time: 11/18/24 12:08 Chief Complaint: screening colonoscopy [facility] Social History Social History Smoking status: Former smoker Tobacco type: cigarettes Alcohol intake: current Substance use: never Substance use type: does not use Living arrangements: alone Spiritual care concerns: No Meds Home Medications and Allergies Home Medications ?Medication ?Instructions ?Recorded ?Confirmed ?Type alfuzosin 10 mg tablet,extended 10 mg PO DAILY 10/31/24 10/31/24 History release 24 hr rosuvastatin 40 mg tablet 40 mg PO DAILY 10/31/24 10/31/24 History Allergies Allergy/AdvReac Type Severity Reaction Status Date / Time No Known Allergies Allergy Verified 11/18/24 10:17 Vital Signs Vital Signs - 24 hr 11/18/24 10:39 Temperature 98.2 F Pulse Rate 65 Respiratory Rate 15 Blood Pressure 122/85 Pulse Oximetry 98 Oxygen Delivery Room Air
--- NOTE | 2024-11-18 12:11 | WPDANESPN ---
Anes - Prog Note Post-Op Date/Time: 11/18/24 12:11 Vital Signs: Last Vital Signs Temp 98.2 F 11/18/24 10:39 Pulse 64 11/18/24 12:02 Resp 17 11/18/24 12:02 BP 123/81 11/18/24 12:02 Pulse Ox 100 11/18/24 12:02 O2 Del Method Room Air 11/18/24 12:02 Pain Score (VAS): no I/O: Intake & Output 11/17/24 11/18/24 11/18/24 23:59 07:59 15:59 Intake Total 400 Balance 400 Patient Feedback: Patient satisfied with anesthetic care.
[2024-11-18 12:12] VITALS: BP 123/78; PULSE 56; RESP 16; O2SAT 100
[2024-11-18 12:22] VITALS: BP 125/81; PULSE 54; RESP 16; O2SAT 100
== END 2024-11-18 12:33 | disposition home or self-care (01) ==
PROVIDERS: PCP Internal Medicine; Visit Provider Internal Medicine Gastroenterology
PROC: 0DJD8ZZ Inspection of Lower Intestinal Tract, Via Natural or Artificial Opening Endoscopic (ICD-10-PCS; CPT 45378; principal; 2024-11-18 11:00)
DX: Z12.11 Encounter for screening for malignant neoplasm of colon (principal); D12.2 Benign neoplasm of ascending colon; D17.5 Benign lipomatous neoplasm of intra-abdominal organs; K57.30 Diverticulosis of large intestine without perforation or abscess without bleeding; K64.8 Other hemorrhoids
CPT/HCPCS: 45381; 45385